=== PATIENT | male | born 1960 | race Caucasian/White ===

== ENCOUNTER 2016-11-24 21:45 | Emergency (ER) | payer OTHER ==
--- NOTE | 2016-11-24 21:48 | PDOC ---
History of Present Illness - General Chief Complaint: Pain, Acute Stated Complaint: ABD PAIN/N/V Time Seen by Provider: 11/24/16 21:46 History Source: Patient Exam Limitations: No Limitations - History of Present Illness Initial Comments: 11/24/16 22:05 This is a 56-year-old male with history of renal colic who comes in complaining of right flank pain, associated with hematuria, nausea and vomiting. Patient said symptoms began this afternoon and have persisted and so he came in for evaluation. Patient said in the past he quit often is able to manage the kidney stone pain with [id number] medications however this time he was vomiting and unable to tolerate any [id number] medications. PAST MEDICAL HISTORY: no significant history PAST SURGICAL HISTORY: no significant history FAMILY HISTORY: no pertinant history SOCIAL HISTORY: Pt lives with family and is employed. MEDICATIONS: reviewed ALLERGIES: As per nursing notes Review of Systems General: No fevers or chills, no weakness, no weight loss HEENT: No change in vision. No sore throat,. No ear pain CardioVascular: No chest pain or shortness of breath Respiratory:No cough, or wheezing. Gastrointestinal: Abdominal/flank pain, nausea, vomiting. No diarrhea Genitourinary: No dysuria, hematuria, or frequency Musculoskeletal: No joint or muscle pain or swelling Neurologic: No headache, vertigo, dizziness or loss of consciousness Psychiatric: nor depression Skin: No rashes or easy bruising Endocrine: no increased thirst or abnormal weight change Allergic: no skin or latex allergy All other systems reviewed and normal Exam: General: Well-nourished well-developed individual, no acute distress HEENT: Throat: Normal, tonsils normal, no erythema or exudate Neck: Supple, no meningeal signs, no lymphadenopathy Eyes::Pupils equal reactive and round, extraocular motion intact Chest: Nontender to palpation Cardiac: S1-S2 normal, regular rate and rhythm, no murmurs rubs or gallops Respiratory: Lungs clear to auscultation bilateral Abdomen: Soft, nondistended, normal bowel sounds, tenderness on palpation right flank. Extremities: Warm, dry, no cyanosis, clubbing, or edema Skin: No rashes Neuro: Alert and oriented x3, nonfocal exam, grossly intact, normal gait Psych: Normal mood and affect CT scan 11/25/16 00:19 INDICATION: Right flank pain. Rule out renal stone. DATE OF SERVICE: 2016-11-24 22:22:02.0 COMPARISON: none FINDINGS: Lung bases are clear. The visualized cardiac chambers are normal size and configuration. There is a moderate degree of left-sided hydronephrosis secondary to a 12 x 11 mm proximal left ureteral stone, at or just beyond the UPJ. Additional 7 mm left renal stone is noted in a lower pole calyx. There is also a 4 mm proximal to mid right ureteral stone, without hydroureter. Normal unenhanced liver, gallbladder, pancreas, spleen, adrenal glands . The stomach and abdominal small and large bowel are normal. There is no aortic aneurysm. There is no significant retroperitoneal lymphadenopathy. The pelvic small and large bowel are notable for 8mm linear metallic body in the cecum, possibly a surgical clip, without evidence of perforation.. There is no evidence of appendicitis, but the appendix is not clearly visualized. The urinary bladder and prostate gland are normal. No pelvic free fluid is identified. There is no significant pelvic lymphadenopathy. IMPRESSION: Moderate degree of left-sided hydronephrosis secondary to a 12 x 11 mm proximal left ureteral stone, at or just beyond the UPJ. 4 mm proximal to mid right ureteral stone, without hydroureter. 7 mm additional left renal stone. 8mm linear metallic foreign body in the cecum, without perforation, possibly a surgical clip. THIS DOCUMENT HAS BEEN ELECTRONICALLY SIGNED Hunter Peña MD 11/24/2016 23:14 MIGEL Carcamo Please call Imaging [facility] [phone] ([phone]) with questions. 11/25/16 00:20 Assessment and plan: This is a 56-year-old male who comes in complaining of right-sided flank pain. Patient has a history of renal colic in the past. Patient has a large stone on the left even though he did not complain of left flank pain approximately 11-12 mm. And a smaller stone on the right of 4 mm. There is a moderate amount of hydroureter and hydronephrosis associated with the stone on the left. And no hydroureter or hydronephrosis associated with the stone on the right. Patient does not have a urologist so I contacted the urologist on-call Dr. Flynn who said he can follow-up with the patient in his office on Saturday. Patient given prescriptions for pain medical dictation , antiemetics and Flomax. Past History - Past Medical History Allergies/Adverse Reactions: Allergies Allergy/AdvReac Type Severity Reaction Status Date / Time No Known Allergies Allergy Unverified 07/27/12 09:15 Home Medications: Ambulatory Orders Sertraline HCl [Zoloft] 75 mg PO DAILY 11/24/16 Naproxen [Naprosyn -] 375 mg PO Q12H #30 tablet 11/25/16 Ondansetron [Zofran Odt -] 4 mg SL TID #21 od.tablet 11/25/16 Oxycodone HCl/Acetaminophen [Percocet 5-325 mg Tablet] 1 - 2 tab PO Q4H #20 tablet MDD 8 11/25/16 Tamsulosin HCl [Flomax] 0.4 mg PO DAILY #30 cap.er.24h 11/25/16 - Psycho/Social/Smoking Cessation Hx Anxiety: No Suicidal Ideation: No Smoking Status: No Smoking History: Never smoked Number of Cigarettes Smoked Daily: 0 ED Treatment Course - LABORATORY CBC & Chemistry Diagram: 11/24/16 22:00 11/24/16 22:00 *DC/Admit/Observation/Transfer Diagnosis at time of Disposition: Bilateral renal colic - Discharge Dispostion Disposition: HOME Condition at time of disposition: Stable Admit: No - Prescriptions Prescriptions: Tamsulosin HCl [Flomax] 0.4 mg PO DAILY #30 cap.er.24h Naproxen [Naprosyn -] 375 mg PO Q12H #30 tablet Oxycodone HCl/Acetaminophen [Percocet 5-325 mg Tablet] 1 - 2 tab PO Q4H #20 tablet MDD 8 Ondansetron [Zofran Odt -] 4 mg SL TID #21 od.tablet - Referrals Referrals: Tyler Flynn MD [Staff Physician] - Adryan Alvarado MD [Primary Care Provider] - - Patient Instructions Additional Instructions: Make sure you stay well hydrated. For the pain take Naprosyn 1 tablet twice a day if he needs something stronger you can also take Percocet one to 2 tablets every 4-6 hours as needed. Note the Percocet will make you drowsy so do not take it if you have to work drive or do anything that requires your concentration.. If you develop nausea as result of the pain take Zofran it is an oral dissolving tablet. You can take one as often as every 8-12 hours if needed. To keep the urine flowing take Flomax 1 tablet a day Call the urologist at 8 AM on Saturday. Return to the emergency department immediately with ANY new, persistent or worsening symptoms. Continue any medications as previously prescribed by your physician. You should follow up with your primary doctor as soon as possible regarding today's emergency department visit. . Please make sure your doctor reviews the results of your emergency evaluation. Thank you for coming to the Emergency Department today for your care. It was a pleasure to see you today. Please note that your evaluation is INCOMPLETE until you follow-up with your doctor.
[2016-11-24 21:58] VITALS: BP 151/90; PULSE 56; TEMP 98.4; BMI 27.5
[2016-11-24] MEDS ORDERED: morphine CARPU-JECT 2 MG/1 ML DISP.SYRIN IVPUSH ONE (22:04)
[2016-11-24] MEDS ORDERED: SODIUM CHLORIDE 1,000 ML IV ONE (22:04)
[2016-11-24] MEDS ORDERED: ONDANSETRON 4 MG/2 ML VIAL IVPB ONE (22:04)
[2016-11-24] MEDS ORDERED: KETOROLAC TROMETHAMINE 30 MG/1 ML VIAL IVPUSH ONE (22:04)
[2016-11-24] MEDS ORDERED: KETOROLAC TROMETHAMINE 30 MG/1 ML VIAL ONE (22:16)
[2016-11-24] MEDS ORDERED: morphine CARPU-JECT 2 MG/1 ML DISP.SYRIN ONE (22:16)
[2016-11-24] MEDS ORDERED: ONDANSETRON 4 MG/2 ML VIAL ONE (22:17)
[2016-11-24 22:24] LABS: BASOPHIL 0.6 % (0-2.0); EOSINOPHIL 1.9 % (0-4.5); MCH 30.5 pg (25.7-33.7); MCHC 34.4 g/dl (32.0-35.9); MEAN CELL VOLUME 88.6 fl (80-96); MEAN PLT VOLUME 9.3 fl (7.5-11.1); NEUTROPHILS 67.9 % (42.8-82.8); PLATELET COUNT 255 K/MM3 (134-434); RDW 12.6 % (11.9-15.9)
[2016-11-24 22:31] LABS: ALBUMIN 4.3 g/dl (3.5-5.0); ALK PHOS 58 U/L (32-92); ANION GAP 6 (8-16); BILIRUBIN,TOTAL 0.7 mg/dl (0.2-1.0); CALCIUM 8.8 mg/dl (8.4-10.2); CO2 23 mmol/L (22-28); CREATININE 0.9 mg/dl (0.6-1.3); GLUCOSE,RANDOM 119 mg/dl (74-106); SGOT/AST 39 U/L (10-42); SGPT/ALT 34 U/L (10-40); TOT PROT 6.7 g/dl (6.4-8.3)
[2016-11-24 23:43] LABS: PH,URINE 5.5 (4.5-8); URINE APPEARANCE Slightly; URINE BILIRUBIN 1+ (NEGATIVE); URINE GLUCOSE (UA) Negative (NEGATIVE); URINE KETONE Trace (NEGATIVE); URINE NITRITE Negative (NEGATIVE); URINE UROBILINOGEN 0.2 E.U/dl (0.2-1.0)
[2016-11-24 23:45] LABS: URINE BLOOD 3+ (NEGATIVE); URINE COLOR YELLOW; URINE LEUK ESTERASE TRACE (NEGATIVE); URINE PROTEIN 2+ (NEGATIVE)
[2016-11-25 00:03] LABS: URINE RBC >100 /hpf (0-3)
[2016-11-25] MEDS ORDERED: OXYCODONE/APAP 5/325MG COMBO TABLET PO ONE (00:11)
[2016-11-25] MEDS ORDERED: OXYCODONE/APAP 5/325MG COMBO TABLET ONE (00:12)
[2016-11-25] MEDS ORDERED: PROPOFOL 20 ML ONE (08:42)
[2016-11-25] MEDS ORDERED: MIDAZOLAM HCL 2 MG/2 ML SINGLE DOSE VIAL ONE (08:42)
[2016-11-25] MEDS ORDERED: DEXAMETHASONE SOD PHOSPHATE 4 MG/1 ML VIAL ONE (08:43)
[2016-11-25] MEDS ORDERED: ONDANSETRON 4 MG/2 ML VIAL ONE (08:43)
[2016-11-25] MEDS ORDERED: ceFAZolin SODIUM 1 GM VIAL ONE ×2 (09:02)
== END 2016-11-25 00:22 | disposition home or self-care (01) ==
LOC: FER 21:45
PROC: 3E0333Z Introduction of Anti-inflammatory into Peripheral Vein, Percutaneous Approach (ICD-10-PCS; principal; 2016-11-24)
PROC: 3E033GC Introduction of Other Therapeutic Substance into Peripheral Vein, Percutaneous Approach (ICD-10-PCS; 2016-11-24)
PROC: 3E033NZ Introduction of Analgesics, Hypnotics, Sedatives into Peripheral Vein, Percutaneous Approach (ICD-10-PCS; 2016-11-24)
PROC: 3E0337Z Introduction of Electrolytic and Water Balance Substance into Peripheral Vein, Percutaneous Approach (ICD-10-PCS; 2016-11-24)
DX: N23 Unspecified renal colic (principal)
CPT/HCPCS: 36415; 74176-TC; 80053; 81003; 81015; 82550; 82553; 83690; 85025; 99282-25

== ENCOUNTER 2016-11-25 04:51 | Observation (INO) | payer OTHER ==
[2016-11-25 04:57] VITALS: BMI 27.5
[2016-11-25] MEDS ORDERED: ONDANSETRON *ODT* 4 MG TABLET SL ONE (05:06)
[2016-11-25] MEDS ORDERED: OXYCODONE/APAP 5/325MG COMBO TABLET ONE ×3 (05:09→10:59)
--- NOTE | 2016-11-25 05:10 | PDOC ---
History of Present Illness - General Chief Complaint: Pain, Acute Stated Complaint: PAIN Time Seen by Provider: 11/25/16 05:03 History Source: Patient Exam Limitations: No Limitations - History of Present Illness Initial Comments: 11/25/16 05:03 This is a 56-year-old male who has a history of renal colic. Patient was seen earlier in this evening for renal colic and discharged home. Patient took his Percocet and he vomited it Patient now returns with the medications having worn off and he is now having pain and vomiting. Patient has a very large 11 mm stone. PAST MEDICAL HISTORY: no significant history PAST SURGICAL HISTORY: no significant history FAMILY HISTORY: no pertinant history SOCIAL HISTORY: Pt lives with family and is employed. MEDICATIONS: reviewed ALLERGIES: As per nursing notes Review of Systems General: No fevers or chills, no weakness, no weight loss HEENT: No change in vision. No sore throat,. No ear pain CardioVascular: No chest pain or shortness of breath Respiratory:No cough, or wheezing. Gastrointestinal: no nausea, vomitting, diarrhea or constipation, No rectal bleeding Genitourinary: No dysuria, hematuria, or frequency Musculoskeletal: No joint or muscle pain or swelling Neurologic: No headache, vertigo, dizziness or loss of consciousness Psychiatric: nor depression Skin: No rashes or easy bruising Endocrine: no increased thirst or abnormal weight change Allergic: no skin or latex allergy All other systems reviewed and normal GENERAL: The patient is awake, alert, and fully oriented, in moderate distress HEAD: Normal with no signs of trauma. EYES: Pupils equal, round and reactive to light, extraocular movements intact, sclera anicteric, conjunctiva clear. BACK: There is some right flank pain on palpation EXTREMITIES: Normal range of motion, no edema. NEUROLOGICAL: Normal speech, normal gait. PSYCH: Normal mood, normal affect. SKIN: Warm, Dry, normal turgor, no rashes or lesions noted. Assessment and plan: Patient returns to the emergency room after failing outpatient treatment to manage his pain and vomiting. Discussed with patient's urologist Dr. Flynn who said patient should be admitted under the hospitalist service and he will see the patient later today. Hospitalist service Dr. Nguyen was contacted and will admit patient to an inpatient bed Past History - Past Medical History Allergies/Adverse Reactions: Allergies Allergy/AdvReac Type Severity Reaction Status Date / Time No Known Allergies Allergy Unverified 07/27/12 09:15 Home Medications: Ambulatory Orders Sertraline HCl [Zoloft] 75 mg PO DAILY 11/24/16 Naproxen [Naprosyn -] 375 mg PO Q12H #30 tablet 11/25/16 Ondansetron [Zofran Odt -] 4 mg SL TID #21 od.tablet 11/25/16 Oxycodone HCl/Acetaminophen [Percocet 5-325 mg Tablet] 1 - 2 tab PO Q4H #20 tablet MDD 8 11/25/16 Tamsulosin HCl [Flomax] 0.4 mg PO DAILY #30 cap.er.24h 11/25/16 Kidney Stones: Yes Psychiatric Problems: Yes - Surgical History Appendectomy: Yes - Psycho/Social/Smoking Cessation Hx Anxiety: No Suicidal Ideation: No Smoking Status: No Smoking History: Never smoked Number of Cigarettes Smoked Daily: 0 *Physical Exam - Vital Signs Last Vital Signs Temp Pulse Resp BP Pulse Ox 97.8 F 88 18 144/81 10 L 11/25/16 04:53 11/25/16 04:53 11/25/16 04:53 11/25/16 04:53 11/25/16 04:53 *DC/Admit/Observation/Transfer Diagnosis at time of Disposition: Bilateral renal colic - Discharge Dispostion Condition at time of disposition: Stable Admit: Yes
[2016-11-25] MEDS ORDERED: morphine CARPU-JECT 4 MG/1 ML DISP.SYRIN IVPUSH ONE ×3 (05:11→05:47)
[2016-11-25] MEDS ORDERED: KETOROLAC TROMETHAMINE 30 MG/1 ML VIAL IVPUSH ONE (05:12)
[2016-11-25] MEDS ORDERED: KETOROLAC TROMETHAMINE 30 MG/1 ML VIAL ONE (05:16)
[2016-11-25] MEDS: OXYCODONE/APAP 5/325MG COMBO TABLET PO ONE ×2 (05:16→11:00)
[2016-11-25] MEDS ORDERED: morphine CARPU-JECT 4 MG/1 ML DISP.SYRIN ONE ×3 (05:17→06:14)
[2016-11-25] MEDS ORDERED: SODIUM CHLORIDE 1,000 ML IV ONE (05:46)
[2016-11-25] MEDS ORDERED: METOCLOPRAMIDE HCL INJECTION 10 MG/2 ML VIAL IVPUSH ONE (05:48)
[2016-11-25] MEDS ORDERED: HYDROmorphone HCL CARPU-JECT 1 MG/1 ML DISP.SYRIN ONE ×2 (06:33→07:55)
[2016-11-25] MEDS ORDERED: HYDROmorphone HCL CARPU-JECT 1 MG/1 ML DISP.SYRIN IVPUSH ONE ×2 (06:37→07:52)
--- NOTE | 2016-11-25 06:58 | HP ---
CHIEF COMPLAINT: right side abd/flank pain PCP: Dr. Jenny Gonzalez HISTORY OF PRESENT ILLNESS: This is a 56 yr old male who presents with flank pain, nausea, and vomiting since last evening. He initially was seen in ER and given pain meds with a finding of 5mm nonobstructive stone on the right kidney and 11 mm nonobstructive stone on the left kidney. Pt is urinating well but no stone has been passed. He returned home but within 4 hours, pt returned to ER for pain relief. The ER has called urology managed services consultant, Dr. Barrow who would like the pt NPO and he will stent him this morning. Pt is in full agreement with procedure. ER course was notable for: (1) CT spiral with + stones, pain meds and antiemetic (2) (3) PAST MEDICAL HISTORY: Depression PAST SURGICAL HISTORY: none Social History: Smoking:denies Alcohol:social Drugs: denies Family History: Allergies clams No Known Allergies Allergy (Unverified 07/27/12 09:15) HOME MEDICATIONS: Home Medications Medication Instructions Recorded Sertraline HCl [Zoloft] 75 mg PO DAILY 11/24/16 Naproxen [Naprosyn -] 375 mg PO Q12H #30 tablet 11/25/16 Ondansetron [Zofran Odt -] 4 mg SL TID #21 od.tablet 11/25/16 Oxycodone HCl/Acetaminophen 1 - 2 tab PO Q4H #20 tablet MDD 8 11/25/16 [Percocet 5-325 mg Tablet] Tamsulosin HCl [Flomax] 0.4 mg PO DAILY #30 cap.er.24h 11/25/16 REVIEW OF SYSTEMS CONSTITUTIONAL: Absent: fever, chills, diaphoresis, generalized weakness, malaise, loss of appetite, weight change HEENT: Absent: rhinorrhea, nasal congestion, throat pain, throat swelling, difficulty swallowing, mouth swelling, ear pain, eye pain, visual changes CARDIOVASCULAR: Absent: chest pain, syncope, palpitations, irregular heart rate, lightheadedness , peripheral edema RESPIRATORY: Absent: cough, shortness of breath, dyspnea with exertion, orthopnea, wheezing, stridor, hemoptysis GASTROINTESTINAL: Absent: abdominal pain, abdominal distension, nausea, vomiting, diarrhea, constipation, melena, hematochezia GENITOURINARY: Absent: dysuria, frequency, urgency, hesitancy, hematuria, (+)flank pain, genital pain MUSCULOSKELETAL: Absent: myalgia, arthralgia, joint swelling, back pain, neck pain SKIN: Absent: rash, itching, pallor HEMATOLOGIC/IMMUNOLOGIC: Absent: easy bleeding, easy bruising, lymphadenopathy, frequent infections ENDOCRINE: Absent: unexplained weight gain, unexplained weight loss, heat intolerance, cold intolerance NEUROLOGIC: Absent: headache, focal weakness or paresthesias, dizziness, unsteady gait, seizure, mental status changes, bladder or bowel incontinence PSYCHIATRIC: Absent: anxiety, depression, suicidal or homicidal ideation, hallucinations. PHYSICAL EXAMINATION Vital Signs - 24 hr 11/25/16 04:53 Temperature 97.8 F Pulse Rate 88 Respiratory 18 Rate Blood Pressure 144/81 O2 Sat by Pulse 10 L Oximetry (%) GENERAL: Awake, alert, and fully oriented, in no acute distress. NECK: Normal range of motion, supple without lymphadenopathy, JVD, or masses. LUNGS: Breath sounds equal, clear to auscultation bilaterally. No wheezes, and no crackles. No accessory muscle use. HEART: Regular rate and rhythm, normal S1 and S2 without murmur, rub or gallop. ABDOMEN: Soft, nontender, not distended, normoactive bowel sounds, no guarding, no rebound, no masses. No hepatomegaly or splenomegaly. +CV tenderness on the right and left side. MUSCULOSKELETAL: Normal range of motion at all joints. No bony deformities or tenderness. No CVA tenderness. UPPER EXTREMITIES: 2+ pulses, warm, well-perfused. No cyanosis. No clubbing. No peripheral edema. LOWER EXTREMITIES: 2+ pulses, warm, well-perfused. No calf tenderness. No peripheral edema. NEUROLOGICAL: Cranial nerves II-XII intact. Normal speech. Normal gait. PSYCHIATRIC: Cooperative. Good eye contact. Appropriate mood and affect. SKIN: Warm, dry, normal turgor, no rashes or lesions noted, normal capillary refill. ASSESSMENT/PLAN: This 56 yr old male with c/o flank pain with findings of kidney stones bilaterally. 1. kidney stones -plan for stenting this morning with urology -staff aware -pain medication -zofran given -labs noted -IVF, NPO Problem List - Problem (1) Bilateral renal colic Code(s): N23 - UNSPECIFIED RENAL COLIC Visit type - Emergency Visit Emergency Visit: Yes ED Registration Date: 11/25/16 Care time: The patient presented to the Emergency Department on the above date and was hospitalized for further evaluation of their emergent condition. - New Patient This patient is new to me today: Yes Date on this admission: 11/25/16 - Critical Care Critical Care patient: No
[2016-11-25] MEDS ORDERED: SODIUM CHLORIDE 1,000 ML IV SCH (07:30)
[2016-11-25] MEDS ORDERED: ACETAMINOPHEN 325 MG TABLET (FP) PO PRN (08:27)
[2016-11-25] MEDS ORDERED: HYDROmorphone HCL CARPU-JECT 1 MG/1 ML DISP.SYRIN IVPB PRN (08:27)
[2016-11-25] MEDS ORDERED: ONDANSETRON 4 MG/2 ML VIAL IVPB PRN (08:27)
--- NOTE | 2016-11-25 08:41 | CON.GU ---
Consult Consult Specialty:: urology Referred by:: ER Reason for Consultation:: renal colic - History of Present Illness Chief Complaint: renal colic History of Present Illness: 56 year old male with history of nephrolithaisis who presents with 24 hours of severe right sided flank pain. No fevers. CT scan revealed a 4mm right ureteral stone and a 12mm left ureteral stone with severe hydronephrosis. Patient has not had the pain controlled with meds. No signs of sepsis - History Source History Provided By: Patient Limitations to Obtaining History: No Limitations - Past Medical History Renal/: Yes: Renal Calculi - Smoking History Smoking history: Never smoked Aproximately how many cigarettes per day: 0 Home Medications - Allergies Allergies/Adverse Reactions: Allergies Allergy/AdvReac Type Severity Reaction Status Date / Time No Known Allergies Allergy Unverified 07/27/12 09:15 - Home Medications Home Medications: Ambulatory Orders Sertraline HCl [Zoloft] 75 mg PO DAILY 11/24/16 Naproxen [Naprosyn -] 375 mg PO Q12H #30 tablet 11/25/16 Ondansetron [Zofran Odt -] 4 mg SL TID #21 od.tablet 11/25/16 Oxycodone HCl/Acetaminophen [Percocet 5-325 mg Tablet] 1 - 2 tab PO Q4H #20 tablet MDD 8 11/25/16 Tamsulosin HCl [Flomax] 0.4 mg PO DAILY #30 cap.er.24h 11/25/16 Review of Systems - Review of Systems Constitutional: denies: Chills, Fever Genitourinary: reports: Flank Pain, Hematuria. denies: Dysuria, Frequency Physical Exam- Vital Signs: Vital Signs Temperature 97.8 F 11/25/16 04:53 Pulse Rate 88 11/25/16 04:53 Respiratory Rate 18 11/25/16 04:53 Blood Pressure 144/81 11/25/16 04:53 O2 Sat by Pulse Oximetry (%) 10 L 11/25/16 04:53 Constitutional: Yes: Well Nourished, Moderate Distress Renal/: Yes: CVA Tenderness - Right, Hematuria. No: Bladder Distention, CVA Tenderness - Left, Barr Present, Incontinence Imaging - Results Cat Scan: Image Reviewed Problem List - Problems (1) Hydronephrosis Code(s): N13.30 - UNSPECIFIED HYDRONEPHROSIS (2) Bilateral ureteral calculi Assessment/Plan: for bilateral ureteral stent placement Code(s): N20.1 - CALCULUS OF URETER
[2016-11-25] MEDS ORDERED: DESFLURANE GAS 240 ML BOTTLE IH ONE (08:44)
[2016-11-25] MEDS ORDERED: ceFAZolin SODIUM 1 GM VIAL IVPB ONE (08:59)
[2016-11-25] MEDS ORDERED: IOHEXOL 300 MG/ML INFUS..BTL IJ ONE (09:08)
[2016-11-25] MEDS ORDERED: LIDOCAINE HCL 2% JELLY 10 ML CARTRIDGE ONE (09:12)
[2016-11-25] MEDS ORDERED: LIDOCAINE HCL 2% JELLY 10 ML CARTRIDGE TP ONE (09:22)
--- NOTE | 2016-11-25 09:29 | OP ---
Operative Note - Note: Operative Date: 11/25/16 Pre-Operative Diagnosis: bilateral ureteral calculi Operation: cysto, bilateral retrograde pyelogram, bilateral ureteral stent placement Post-Operative Diagnosis: Same as Pre-op
[2016-11-25] MEDS ORDERED: PANTOPRAZOLE 40 MG TABLET (FP) PO SCH (10:00)
[2016-11-25 11:15] VITALS: BP 107/66; PULSE 61; TEMP 98.1
--- NOTE | 2016-11-25 11:24 | DS ---
Physical Examination Vital Signs: Vital Signs Temperature 98.1 F 11/25/16 10:50 Pulse Rate 61 11/25/16 10:50 Respiratory Rate 18 11/25/16 10:50 Blood Pressure 107/66 11/25/16 10:50 O2 Sat by Pulse Oximetry (%) 98 11/25/16 10:50 Constitutional: Yes: Well Nourished Eyes: Yes: WNL HENT: Yes: WNL Neck: Yes: WNL Cardiovascular: Yes: WNL Respiratory: Yes: WNL Gastrointestinal: Yes: WNL Renal/: Yes: CVA Tenderness - Left, CVA Tenderness - Right Musculoskeletal: Yes: WNL Extremities: Yes: WNL Edema: No Integumentary: Yes: WNL Neurological: Yes: WNL ...Motor Strength: WNL Discharge Summary Reason For Visit: BILATERAL RENAL COLIC Current Active Problems Bilateral renal colic (Acute) Bilateral ureteral calculi (Acute) Hydronephrosis (Acute) Condition: Stable - Instructions Diet, Activity, Other Instructions: Discharge instructions 1. You have received urethral stent placements today 2. No alcohol until cleared by your urologist 3. Drink plenty of fluids 3. Rest today and advance as tolerated. 4. Take antibiotics as prescribe 5. Call tomorrow for an appt with Dr. Flynn 6 Take pain meds as prescribed. Referrals: Adryan Alvarado MD [Primary Care Provider] - Tyler Flynn MD [Staff Physician] - Disposition: HOME - Home Medications Comprehensive Discharge Medication List: Ambulatory Orders Sertraline HCl [Zoloft] 75 mg PO DAILY 11/24/16 Naproxen [Naprosyn -] 375 mg PO Q12H #30 tablet 11/25/16 Ondansetron [Zofran Odt -] 4 mg SL TID #21 od.tablet 11/25/16 Oxycodone HCl/Acetaminophen [Percocet 5-325 mg Tablet] 1 - 2 tab PO Q4H #20 tablet MDD 8 11/25/16 Tamsulosin HCl [Flomax] 0.4 mg PO DAILY #30 cap.er.24h 11/25/16 This patient is new to me today: Yes Date on this admission: 11/25/16 Emergency Visit: Yes ED Registration Date: 11/25/16 Care time: The patient presented to the Emergency Department on the above date and was hospitalized for further evaluation of their emergent condition. Critical Care patient: No - Discharge Referral Referred to [facility] Med P.C.: No
--- NOTE | 2016-11-25 18:02 | OP ---
DATE OF OPERATION: 11/25/2016 PREOPERATIVE DIAGNOSIS: Bilateral ureteral calculi, bilateral hydronephrosis, and renal colic. SURGEON: Tyler Flynn MD ANESTHESIOLOGIST: Amado Salas MD ANESTHESIA: General anesthesia. PROCEDURE: Cystoscopy, bilateral ureteral stent placement, bilateral retrograde pyelogram. FINDINGS: Bilateral hydronephrosis. DRAINS: A 6 x 26 double-J ureteral stent. ESTIMATED BLOOD LOSS: None. PREOPERATIVE INDICATIONS: The patient is a 56-year-old male with history of nephrolithiasis. He presents with 24 hours of severe right-sided flank pain. CT scan reveals an obstructing stone in the right ureter and an obstructing stone in the left ureter as well, with severe hydronephrosis on the left. He comes to the OR for bilateral stent placement. OPERATION: The patient was brought to the OR, placed on the table in supine position, given general anesthesia and IV antibiotics, and placed in the modified lithotomy position. The groin was prepped and draped sterilely. Cystoscopy was performed. The urethra was normal. The prostate was slightly enlarged. The bladder itself appeared to be normal. The right ureteral orifice was visualized. An open-ended catheter was placed, and a retrograde pyelogram was performed, delineating the system with mild right-sided hydronephrosis. A wire was passed up into the right kidney under fluoroscopic guidance, and a 6 x 26 double-J ureteral stent was then placed, one loop seen in the kidney and 1 loop in the bladder. The left side was then approached. The left UO was intubated with a 6-Maltese ureteral catheter. Retrograde pyelogram was performed, which revealed severe left-sided hydronephrosis. The wire was then passed up into the kidney under fluoroscopic guidance, and a 6 x 26 double-J ureteral stent was placed as well. One loop was seen in the renal pelvis and 1 loop in the bladder. The bladder was emptied. Lidocaine jelly was infused per urethra. The patient was woken up. TYLER FLYNN M.D. [id number]
--- NOTE | 2016-11-26 09:16 | EKG ---
Test Reason : Blood Pressure : / mmHG Vent. Rate : 056 BPM Atrial Rate : 056 BPM P-R Int : 190 ms QRS Dur : 114 ms QT Int : 454 ms P-R-T Axes : 061 000 -44 degrees QTc Int : 438 ms SINUS BRADYCARDIA LEFT ATRIAL ENLARGEMENT LEFT VENTRICULAR HYPERTROPHY WITH REPOLARIZATION ABNORMALITY ABNORMAL ECG WHEN COMPARED WITH ECG OF 20-SEP-2005 13:44, ST-T abnormalities now noted in V4-6 Confirmed by JONATHAN ROGER MD ([id number]) on 11/26/2016 9:16:26 AM Referred By: MD KWONG Confirmed By:JONATHAN ROGER MD
== END 2016-11-25 12:05 | disposition home or self-care (01) ==
LOC: SUPCPDRO 04:51 → FER 04:51 → FM/S 05:53 → UNDOADMIN 07:26 → FM/S 07:26
PROVIDERS: ADMIT Internal Medicine; ATTEND Internal Medicine
PROC: BT14YZZ Fluoroscopy of Kidneys, Ureters and Bladder using Other Contrast (ICD-10-PCS; 2016-11-25)
PROC: 0T788DZ Dilation of Bilateral Ureters with Intraluminal Device, Via Natural or Artificial Opening Endoscopic (ICD-10-PCS; principal; 2016-11-25 09:08)
DX: N20.1 Calculus of ureter (principal); N13.2 Hydronephrosis with renal and ureteral calculous obstruction
CPT/HCPCS: 36415; 71010-TC; 74000-TC; 76000-TC; 84484; 93005; 94760; 99283-25; G0378

== ENCOUNTER 2016-11-29 08:25 | Day surgery (SDC) | payer OTHER ==
[2016-11-28 10:43] VITALS: BMI 27.5
--- NOTE | 2016-11-29 10:37 | HP ---
History & Physical Update - History History: No Change - Physical Physical: No Change - Assessment Assessment: No Change - Plan Plan: No Change
[2016-11-29] MEDS ORDERED: IBUPROFEN 800 MG/8 ML IJ IVPB PRN (10:38)
[2016-11-29] MEDS ORDERED: ACETAMINOPHEN 1000 MG/100 ML VIAL (NON FORMULARY) IVPB ONE (10:38)
[2016-11-29] MEDS ORDERED: DEXTROSE 5%-0.45% SALINE 1,000 ML IV SCH (10:45)
[2016-11-29] MEDS ORDERED: MIDAZOLAM HCL 2 MG/2 ML SINGLE DOSE VIAL ONE (10:48)
[2016-11-29] MEDS ORDERED: PROPOFOL 20 ML ONE (10:49)
[2016-11-29] MEDS ORDERED: ceFAZolin SODIUM 1 GM VIAL IVPB ONE (11:00)
[2016-11-29] MEDS ORDERED: ceFAZolin SODIUM 1 GM VIAL ONE (11:08)
[2016-11-29] MEDS ORDERED: IOHEXOL 300 MG/ML INFUS..BTL IJ ONE (11:11)
[2016-11-29] MEDS ORDERED: LIDOCAINE HCL 2% JELLY 10 ML CARTRIDGE ONE (11:58)
[2016-11-29] MEDS ORDERED: LIDOCAINE HCL 2% JELLY 10 ML CARTRIDGE TP ONE (11:59)
[2016-11-29] MEDS ORDERED: oxyCODONE HCL 5 MG TABLET PO PRN (12:18)
[2016-11-29] MEDS ORDERED: ONDANSETRON 4 MG/2 ML VIAL IVPUSH PRN (12:18)
[2016-11-29] MEDS ORDERED: PROMETHAZINE HCL 25 MG/1 ML VIAL IVPUSH PRN (12:18)
[2016-11-29] MEDS ORDERED: IBUPROFEN 800 MG/8 ML IJ IVPB ONE (12:28)
[2016-11-29] MEDS ORDERED: LACTATED RINGERS SOLUTION 1,000 ML IV SCH (12:30)
--- NOTE | 2016-11-29 13:24 | OP ---
DATE OF OPERATION: 11/29/2016 PREOPERATIVE DIAGNOSIS: Bilateral renal calculi. POSTOPERATIVE DIAGNOSIS: Bilateral renal calculi. PROCEDURES PERFORMED: Cystoscopy, bilateral ureteroscopy with laser lithotripsy, bilateral ureteral stent placement, bilateral retrograde pyelograms. STENTS: A 6 x 26 bilaterally. FINDINGS: Stones. SURGEON: Tyler Flynn MD ANESTHESIA: General DrMasoud . SPECIMENS: Previous stents. PREOPERATIVE INDICATIONS: This is a 66-year-old male who came in over the holiday weekend with obstructing stones. Stents were placed emergently. He comes now for laser lithotripsy. DESCRIPTION OF PROCEDURE: The patient was brought to the OR and placed on the table in supine position. He was given general anesthesia and IV antibiotics and he was placed in a modified lithotomy position. The groin was prepped and draped sterilely. Cystoscopy was performed. The urethra and prostate appeared to be normal. There was stone seen in the bladder not seen on previous cystoscopy. The wire on the right side was pulled through the urethral meatus. A wire was passed up to the right kidney. A flexible uteroscope was passed. There was some organized clot seen in the renal pelvis. A small stone was seen in the mid ureter and this was broken up with the laser. Wire was subsequently placed and a 6 x 26 double-J ureteral stent was placed. On the left side the stent was again removed through the urethral meatus. Through wire was passed up into the left kidney. A ureteral access sheath was passed slowly over the wire without any difficulty. A flexible ureteroscope was passed into the left kidney. A large obstructing stone which was seen on the CAT scan was impacted at the UPJ. Using the Holmium laser this stone was broken up into small pieces of fragments. There were some stones seen on the CAT scan in the lower pole and this was seen as well and also broken up with the laser. No bleeding occurred. A wire was left in place. The access sheath was pulled out and the entire length of the ureter was examined and noted to be okay. A 6 x 26 double-J ureteral stent was placed on the left side as well under fluoroscopic guidance. The bladder was emptied. The patient was woken up. Dona [id number]
[2016-11-29 14:40] VITALS: PULSE 62
[2016-11-29 14:46] VITALS: BP 110/62; TEMP 97.9
--- NOTE | 2016-11-30 10:05 | PATH ---
Surgical Pathology Report Patient Name: OSWALDO SOTO Med. Rec. #: [id number] /Age/Gender: 1960 (Age: 56) / M Account: [id number] Location: [facility] Taken: 11/29/2016 Received: 11/29/2016 Reported: 11/30/2016 Physicians: Tyler Flynn M.D. Specimen(s) Received A: RIGHT URETERAL STENT B: LEFT URETERAL STENT Clinical History Bilateral ureteral stone Final Diagnosis A. STENT, RIGHT URETER, REPLACEMENT: STENT (GROSS EXAM). B. STENT, LEFT URETER, REPLACEMENT: STENT (GROSS EXAM). Electronically Signed Skyler Wong M.D. Gross Description A. Received fresh labeled "right ureteral stent" is a 39 cm in length green, coiled portion of tubing, consistent with a ureteral stent. No soft tissue is present. No sections are submitted, gross only. B. Received fresh labeled "left ureteral stent" is a 39 cm in length green, coiled portion of tubing, consistent with a ureteral stent. No soft tissue is present. No sections are submitted, gross only. DL/11/29/2016 saudi11/29/2016
== END 2016-11-29 14:20 | disposition home or self-care (01) ==
LOC: JASU-SURG 08:25
PROVIDERS: ATTEND Urology
PROC: 0TF78ZZ Fragmentation in Left Ureter, Via Natural or Artificial Opening Endoscopic (ICD-10-PCS; principal; 2016-11-29 10:00)
PROC: 0TF68ZZ Fragmentation in Right Ureter, Via Natural or Artificial Opening Endoscopic (ICD-10-PCS; 2016-11-29 10:00)
PROC: 0T788DZ Dilation of Bilateral Ureters with Intraluminal Device, Via Natural or Artificial Opening Endoscopic (ICD-10-PCS; 2016-11-29 10:00)
PROC: BT14YZZ Fluoroscopy of Kidneys, Ureters and Bladder using Other Contrast (ICD-10-PCS; 2016-11-29 10:00)
DX: N20.0 Calculus of kidney (principal)
CPT/HCPCS: 76000-TC; 88300-TC; 94760